=== PATIENT | male | born 1965 | race Caucasian/White ===

== ENCOUNTER 2017-03-24 17:05 | Inpatient (IN) | payer BC ==
[~2017-03-24] VITALS: Ht 165.1 cm; Wt 76.3 kg
--- NOTE | ~2017-03-24 | ECHO ---
Transthoracic Echocardiography Report (TTE) Demographics Patient Name DANIELA WEBSTER Date of Study 03/25/2017 Patient Number [id number] Visit Number [id number] Date of 1965 Room Number G6306 Gender Male Number Age 51 year(s) Referring Bianka De Anda MD Grating Machine Operator Olena Adrian, Physician RT,RVT,RDCS Physician Interpreting Sudha Vargas Motion Picture Operator Physician Supervising Ordering MD/MLP Physician Nurse Stress Watch Repair Person Conclusions Contractility Score Summary Summary The estimated left ventricular ejection fraction is 50%. Septal hypokinesis The left ventricle is mildly dilated . Normal mitral valve structure and function. Trivial mitral regurgitation. Mild tricuspid regurgitation by color Doppler. Normal estimated pulmonary artery pressure. The aortic root appears mildly dilated. The maximum diameter measures 3.9 cm. Procedure Type of Study TTE procedure:2D Echocardiogram, M-Mode, Doppler , Color Doppler. Procedure Date Date: 03/25/2017 Start: 08:43 AM Study Location: Inpatient Portable Technical Quality: Adequate visualization Indications:Elevated cardiac enzymes. Additional Indications:Fever and sinusitis, LBB Appropriate Use Criteria: 9 Patient Status: Routine HR: 91 bpm BP: 106/65 mmHg M-Mode/2D Measurements LV Diastolic Dimension: 5.18 cm LV Systolic Dimension: 4.03 cm LV Septum Diastolic: 0.82 cm LV Septum Systolic: 1.37 cm LV PW Diastolic: 1.09 cm LV PW Systolic: 1.37 cm Cardiac Output: 7.69 l/min AO Root Dimension: 3.9 cm RV Diastolic Dimension: 3.15 cm LA Dimension: 3.8 cm EF Estimated: 50 % MV EPSS: 0.8 cm LVOT: 2 cm LVOT VTI: 26.9 cm LV Stroke volume: 84.47 ml Doppler Measurements AV Peak Velocity: 1.57 m/s MV Peak E-Wave: 1.09 m/s AV Peak Gradient: 9.86 mmHg MV Peak A-Wave: 0.94 m/s AV Mean Gradient: 5 mmHg MV E/A Ratio: 1.16 LVOT Peak Velocity: 1.47 m/s MV P1/2t: 52 msec TR Gradient:23.81 mmHg PV Peak Velocity: 1.36 m/s Estimated RAP:10 mmHg PV Peak Gradient: 7.4 mmHg Estimated RVSP: 34 mmHg Estimated PASP: 33.81 mmHg E' Septal Velocity: 0.08 m/s A' Septal Velocity: 0.13 m/s MV E/E' Ratio: 13.3 Findings Left Ventricle Septal hypokinesis The left ventricle is mildly dilated . Right Ventricle Normal right ventricle structure and function. Left Atrium Normal left atrial size. Right Atrium Normal right atrial size. Mitral Valve Normal mitral valve structure and function. Trivial mitral regurgitation. Aortic Valve Normal aortic valve structure and function. There is trivial aortic regurgitation. Tricuspid Valve Mild tricuspid regurgitation by color Doppler. Normal estimated pulmonary artery pressure. Pulmonic Valve Normal pulmonic valve structure and function. Pericardial Effusion No evidence of pericardial effusion. Miscellaneous The aortic root appears mildly dilated. The maximum diameter measures 3.9 cm. Pleural Effusion No evidence of pleural effusion. Signature dtt: Becky Haley dtd: 03/25/17 0843 Physician Self Edit
--- NOTE | ~2017-03-24 | HP ---
PATIENT'S NAME: DANIELA WEBSTER [facility] [place] AGE: 51 Y [address] ROOM: G6306 [place] [id number] LOCATION: GPCU ADMIT DATE: 03/24/2017 History & Physical DISCHARGE DATE: FAMILY PHYSICIAN: Martin Sheffield MD ATTENDING PHYSICIAN: Barney Carlton DATE OF SERVICE: CHIEF COMPLAINT: Febrile illness with acute kidney injury. HISTORY OF PRESENTING ILLNESS: This 51-year-old white male came to the emergency department this evening complaining of nausea and diarrhea of about 12 hours' duration. He states that he has had significant sinus pressure and headache pain for the last couple of days. He blames this on "migraine," but he does admit that he has had problems with allergies and sinus pressure as well. He took an Excedrin yesterday, which helped. Today, he has been unable to keep anything down. He admits to fever but he has not actually taken his temperature at home. He denies chest pain. He has occasional cough which is nonproductive. No significant abdominal pain. He does feel a little "short of breath." Stools have been loose and watery over the course of the day. He denies noticing any blood in his stools or black tarry stools. He has been voiding without any problems. No numbness or tingling in his extremities or any associated physical or constitutional complaints. PAST MEDICAL HISTORY: ALLERGIES: PENICILLIN, NUTS. ILLNESSES: 1. Migraine headaches. 2. Seasonal allergic rhinitis. 3. Hypogonadism. CURRENT MEDICATIONS: 1. Testosterone gel applied daily. 2. Vitamin E daily. 3. Fish oil daily. 4. Lycopene daily. 5. Apple cider vinegar b.i.d. 6. Benadryl 25 mg p.o. daily. 7. Multivitamin daily. PATIENT'S NAME: BALLSTON SPA DANIELA Chano [facility] [place] AGE: 51 Y [address] ROOM: G6306 [place], [place] [address] LOCATION: GPCU ADMIT DATE: 03/24/2017 History & Physical DISCHARGE DATE: FAMILY PHYSICIAN: Martin Sheffield MD ATTENDING PHYSICIAN: Barney Carlton 8. Cheryl-D p.r.n. FAMILY HISTORY: Significant for heart disease in his mother. SOCIAL HISTORY: There is no significant history of tobacco use. Only rare alcohol use. REVIEW OF SYSTEMS: As per HPI. All other organ systems reviewed and are negative. OBJECTIVE: VITAL SIGNS: Temperature 101, pulse 60, respirations 20, blood pressure 145/79, O2 saturation 96% on room air. GENERAL: He is anxious, mildly ill appearing, lying in bed, in mild distress secondary to headache pain. SKIN: Supple, pink, warm, dry. No obvious rashes. HEENT: Otherwise, normocephalic. Sclerae nonicteric. Pupils equal and round, slow to react to light. Extraocular movements appear intact. Nasal turbinates are engorged. Mucous crusted. Oropharynx is mildly erythematous with some thick postnasal drainage. NECK: Supple. No masses. No adenopathy. No thyromegaly. No JVD. CHEST: Chest wall is symmetrical. HEART: Regular without murmurs. LUNGS: Clear bilaterally. No wheezes or crackles are heard. ABDOMEN: Soft, diffusely tender, but without guarding or rebound. No masses or hepatosplenomegaly. : Not done. RECTAL: Not done. EXTREMITIES: Display no clubbing, cyanosis, or edema. NEUROLOGIC: He demonstrates photosensitivity/photophobia, but no focal deficits. LABORATORY AND X-RAY DATA: CT scan of the brain is unremarkable. CBC showed a white blood cell count 11.0, hemoglobin is 17.1, hematocrit 49.9, platelets 257. Chemistries reveal BUN and creatinine of 18 and 1.5 respectively, sodium and potassium 138 and 3.8, chloride and CO2 are 104 and 26, calcium is 8.9. AST and ALT of 34 and 43, bilirubin is 0.8, magnesium was low at 1.6. Glucose 115. Cardiac enzymes revealed troponin I minimally abnormal at 0.044, CPK of 215, CK-MB 0.9. BNP was normal. C-reactive protein was elevated at 4.16. TSH was 0.982. Blood gases revealed pH of 7.58, pCO2 of 32, pO2 of 31 (this was a venous blood gas). ASSESSMENT AND PLAN: PATIENT'S NAME: DANIELA WEBSTER [facility] [place] AGE: 51 Y [address] ROOM: [place] [address] [facility] ADMIT DATE: 03/24/2017 History & Physical DISCHARGE DATE: FAMILY PHYSICIAN: Martin Sheffield MD ATTENDING PHYSICIAN: Barney Carlton 1. Febrile illness. I suspect a viral syndrome. Acute sinusitis in the ethmoids and left maxillary sinuses could also be a contributing factor. I do not believe that he is septic. We will admit for inpatient care and provide some supportive cares and symptomatic measures. I did elect to go ahead and start IV levofloxacin. We will plan to follow up on blood culture results when they are known. We will surveil for other possible sources of infection. 2. Acute kidney injury. Appears to be prerenal. We will continue with careful IV fluid hydration therapy and monitor. 3. Acute gastroenteritis, suspect a viral illness as above. We will provide supportive cares and symptomatic measures and monitor. 4. Elevated cardiac enzymes in the setting of known left bundle-branch block. We will follow cardiac enzyme trend. He is, otherwise, asymptomatic. We will plan to get an echocardiogram in the morning and consider Cardiology consultation accordingly. 5. Migraine headache. I suspect this is just sinus headache. We will manage symptomatically as above. Expect gradual improvement with treatment of sinusitis. He might benefit from outpatient ENT evaluation eventually. We will start Flonase nasal spray and some Mucinex. 6. Essential hypertension. We will monitor the trend and consider antihypertensive therapy if necessary. 7. Deep venous thrombosis prophylaxis. We will use low-dose Lovenox while he is inpatient. BARNEY CARLTON MD AJS/modl /[id number] D: [id number] T: [id number] HISTORY & PHYSICAL
--- NOTE | ~2017-03-24 | DS ---
PATIENT'S NAME: DANIELA WEBSTER [facility] AGE: 51 Y [address] ROOM: G6306 [place], [place] [address] LOCATION: GPCU ADMIT DATE: 03/24/2017 Discharge Summary DISCHARGE DATE: 03/26/2017 FAMILY PHYSICIAN: Martin Sheffield MD ATTENDING PHYSICIAN: Víctor Carlton PRINCIPAL DIAGNOSES: 1. Acute kidney injury. 2. Acute gastroenteritis. 3. Left bundle-branch block, old. 4. Nausea, vomiting, and diarrhea. BRIEF HOSPITAL COURSE: This is a 51-year-old male, who presents with 1-day history of nausea, vomiting, and diarrhea following a fruit salad that he had. The patient on presentation was noted to be significantly dehydrated with an acute kidney injury with creatinine of 1.6. The patient was admitted and managed with supportive care and with hydration. The patient also had signs of sepsis with elevated white count and high fever and was started on broad- spectrum antibiotics. The patient today is doing very well. Nausea, vomiting, and diarrhea have subsided. Kidney function is back to normal as well, and white blood cell count has normalized as well. The patient also had a mild elevation of troponin. This might be related to his kidney injury. The patient does have a history of an old left bundle-branch block and has had an extensive workup. The patient has had an echo during his hospital stay and it showed ejection fraction of 50% with some old septal hypokinesis. I have advised the patient to follow up with an outpatient dietary aide and he is to bring this up with his primary care. The patient will follow up with his primary care physician within 1 week and have his renal function rechecked again. PHYSICAL EXAMINATION: VITAL SIGNS: The patient is afebrile. Vital signs stable. GENERAL: He is awake, alert, and oriented x3. No acute distress. CHEST: Clear to auscultation bilaterally. HEART: S1 and S2. Regular rate and rhythm. ABDOMEN: Soft, nontender, and nondistended. Positive bowel sounds. EXTREMITIES: Without edema. NEUROLOGIC: Grossly nonfocal. DISPOSITION: Home. FOLLOWUP: With his primary care physician in one week. Less than 30 minutes were spent on discharge planning and facilitating. PATIENT'S NAME: DANIELA WEBSTER [facility] AGE: 51 Y [address] ROOM: G6306 [place] [id number] LOCATION: GPCU ADMIT DATE: 03/24/2017 Discharge Summary DISCHARGE DATE: 03/26/2017 FAMILY PHYSICIAN: Martin Sheffield MD ATTENDING PHYSICIAN: Víctor Carlton LENAOT MD GERTRUDE ANTHONY/modl /[id number] d: 03/27/17 0420 t: 04/05/17 1510, DISCHARGE SUMMARY
--- NOTE | ~2017-03-24 | ER ---
PATIENT'S NAME: ELEANORDANIELA [facility] AGE: 51 Y [address] ROOM: [place] [address] LOCATION: GPCU ADMIT DATE: 03/24/2017 ER/Outpatient Report DISCHARGE DATE: FAMILY PHYSICIAN: Martin Sheffield MD ATTENDING PHYSICIAN: Víctor Carlton Time of Arrival: Admission date and time documented on the medical record. Time of Evaluation: I saw the patient at 1715 hours. CHIEF COMPLAINT: Shortness of breath, racing heart, nausea, diarrhea, and headache. HISTORY OF PRESENT ILLNESS: This patient is a 51-year-old male, who became ill this morning after rising from sleep. Yesterday, he had no complaints, slept well. Woke up with some shortness of breath, racing heart, no fever. He developed shaking chills and rigors. He had some nausea throughout the day. He has had persistent diarrhea all day long. No blood in his diarrhea. No vomiting. He has a generalized headache. No cough, no chest pain. No abdominal pain. Little lightheaded and dizzy, but no syncope or near syncope. No fall or trauma. No eyes, ears, nose, throat, neck, or spine pain. No skin eruptions or rash. No joint or muscle swelling, redness, or pain. No history of endocrine problems, neuro changes, or psych issues. HOME MEDICATIONS: None. ALLERGIES: PENICILLIN. SOCIAL HISTORY: Nonsmoker. Occasional intake of alcohol. SIGNIFICANT PAST MEDICAL HISTORY: Headaches, seasonal allergies, and low testosterone. OPERATIONS: Colonoscopy that was negative 2 years ago. REVIEW OF SYSTEMS: All systems reviewed by me are negative with the exception of those discussed in the history of present illness. PHYSICAL EXAMINATION: VITAL SIGNS: Temperature 101, tympanic; pulse 100, regular; respirations 20; PATIENT'S NAME: [facility] AGE: 51 Y [address] ROOM: [place] [address] LOCATION: GPCU ADMIT DATE: 03/24/2017 ER/Outpatient Report DISCHARGE DATE: FAMILY PHYSICIAN: Martin Sheffield MD ATTENDING PHYSICIAN: Víctor Carlton blood pressure 145/79; and O2 saturation on room air is 96%. HEAD: Normocephalic. No abrasion, contusions, lacerations, or swelling of the scalp or face. EYES: Extraocular muscles intact. PERRL. Sclerae and conjunctivae clear, nonicteric. EARS: Clear TMs bilaterally. NOSE: Clear. THROAT: Clear. Mucous membranes moist. Teeth, jaw intact. NECK: No nuchal rigidity. No thyromegaly or cervical adenopathy. No tenderness. SPINE: Negative. LUNGS: Clear. Good air flow. No rales, rhonchi, or wheezes. HEART: Regular, tachy. Pulses palpable. No chest wall or ribcage pain to palpation, no deformity. ABDOMEN: Soft, nondistended, nontender. Hyperactive bowel tones. No organomegaly or abnormal mass palpable. No CVA tenderness. EXTREMITIES: No peripheral edema, cyanosis, or deformity. NEURO: Cranial nerves intact. No lateralizing sign. The patient is awake, alert, cooperative. Motor and sensory intact. SKIN: Clear. No skin eruptions or rash. LABORATORY DATA AND X-RAYS: EKG showed left bundle-branch block x2, 2 hours apart. Chest x-ray showed no acute infiltrate or changes. Laboratory: CPK and CK-MB were normal x2, 2 hours apart. Initial CPK was 0.044, 2 hours CPK was elevated at 0.053. CRP was elevated at 4.16. Thyroid was normal. ProBNP was normal, less than 30. Venous pH was 7.58. Lactate was 2.1. Procalcitonin was 0.24. D-dimer 0.51. White count was 11,000, 81 segs, 8 lymphs, 10 monos, 1 eo; hemoglobin was 17.1 with hematocrit 49.9; platelet count was 257,000. Sed rate was 5. PTT was 24. Protime is 10.3 with an INR of 0.98. CMS was normal except for an elevated glucose 115, elevated creatinine 1.5, low GFR 50, magnesium was 1.6. Blood cultures x2 drawn, results pending. Did do a CT scan of the head that showed no intracranial bleed, midline shift, mass effect, or skull fracture. The patient did have ethmoid and left maxillary sinusitis. CT scan was read by Radiology, see dictated and transcribed report. EMERGENCY DEPARTMENT COURSE: Did start the patient on IV normal saline, fluids. Gave him 2 L and then 150 mL an hour. Gave him 4 baby aspirin orally in the emergency department. Did give him Benadryl 50 mg IV followed in 10 minutes with Compazine 10 mg and Nubain 5 mg for his headache. His headache markedly improved. IMPRESSION: 1. Febrile illness with tachycardia, tachypnea, fever. Elevated lactate at 2.1. Elevated Procalcitonin at 0.24. Etiology for his fever is PATIENT'S NAME: DANIELA WEBSTER [facility] AGE: 51 Y [address] ROOM: G6306 [place], [place] [address] [facility] AD[facility] DATE: 03/24/2017 ER/Outpatient Report DISCHARGE DATE: FAMILY PHYSICIAN: Martin Sheffield MD ATTENDING PHYSICIAN: Víctor Carlton undetermined at this time, but most likely sinusitis. Two blood cultures were drawn, results pending. 2. Elevated troponin, cardiac enzyme. Need to rule out myocardial etiology. The patient does have a strong family history of heart disease in the 40 to 50 age range. He himself has had no past history of coronary artery disease or heart problems. He has no other risk factors. Will need to have serial EKG, enzymes and possible echocardiogram. 3. Headache, most likely secondary to his infection and fever. 4. Left bundle-branch block. The patient has had this on prior workups. 5. Renal insufficiency with a creatinine of 1.5, low GFR of 50. PLAN: I did discuss this patient with Dr. Carlton, hospitalist. We will admit the patient to PCU telemetry for further evaluation and treatment. Also discussed the patient with Dr. Haley, shearing machine operator, who will follow with the patient with his elevated troponin. Discussion ensued with the patient concerning my findings and recommendations, he understands. KOURTNEY HUNT MD SDS/modl /[id number] d: 03/25/17 0350 t: 03/25/17 1809, OUTPATIENT REPORT
[2017-03-24 17:48] LABS: LACTATE 2.1 mEq/L (0.50-1.60); PCO2 32 mmHg (35-45)
[2017-03-24 17:49] LABS: BASOPHIL % 0.3 %; EOSINOPHIL # 0.1 K/uL (0.0-0.5); EOSINOPHIL % 0.5 %; HEMATOCRIT 49.9 % (37.0-53.0); HEMOGLOBIN 17.1 g/dL (12.0-17.0); IMMATURE GRANULOCYTE % 0.3 %; LYMPHOCYTE # 0.9 K/uL (0.8-4.0); LYMPHOCYTE % 8.3 %; MCH 30.1 pg (27.0-34.0); MCHC 34.3 gm/dL (32.0-36.5); MCV 87.7 fl (83.0-98.0); MONOCYTE # 1.1 K/uL (0.0-1.0); MONOCYTE % 10.1 %; MPV 9.7 fl (9.4-12.4); NEUTROPHIL # (ANC) 8.9 K/uL (1.4-9.0); NEUTROPHIL % 80.5 %; NRBC % 0 /100WBC (0-0.00); PLATELET COUNT 257 K/uL (150-450); PO2 31 mmHg (80-90); RBC 5.69 M/uL (4.00-6.00); RDW-CV 13.2 % (11.9-14.6)
[2017-03-24 17:59] LABS: INR - (THERAPEUTIC) 0.98 (0.92-1.07); PROTIME 10.3 SECONDS (9.8-11.4); PTT 24 SECONDS (25-32)
[2017-03-24 18:13] LABS: ALBUMIN 3.8 gm/dL (3.5-5.0); ALK PHOS 77 IU/L (33-138); ALT 43 IU/L (12-78); BLOOD UREA NITROGEN 18 mg/dL (6-24); CALCIUM 8.9 mg/dL (8.5-10.5); CHLORIDE 104 mMol/L (96-110); CO2 26 mMol/L (22-32); CPK 215 IU/L (35-332); CREATININE 1.5 mg/dL (0.6-1.3); ESTIMATED GFR (MDRD EQUATION) 50; SODIUM 138 mMol/L (135-145); TOTAL BILIRUBIN 0.8 mg/dL (0.0-1.5); TOTAL PROTEIN 7.2 g/dL (6.0-8.4)
[2017-03-24 18:23] LABS: ANION GAP 11.8 (10.0-19.0); AST 34 IU/L (10-40); MAGNESIUM 1.6 mg/dL (1.8-2.6); POTASSIUM 3.8 mMol/L (3.7-5.1)
[2017-03-24] MEDS ORDERED: BENADRYL25 MG PO (23:05)
[2017-03-24] MEDS ORDERED: ANDROGEL 1% TOP (23:05)
[2017-03-24] MEDS ORDERED: TYLENOL EXTRA500 MG PO (23:06)
--- NOTE | 2017-03-24 23:12 | NUR ---
PATIENT ARRIVED TO FLOOR VIA WHEELCHAIR FROM ER AT 2150. IV INTACT AND VSS. PATIENT WENT TO ER TODAY BECAUSE HE HAS BE HAVING DIAHERRA SINCE THIS MORNING ALONG WITH NAUSEA, INCREASED SOB, WORESING CHRONIC HEADACHE UP TO A 7/10 PAIN, AND INCREASED CHEST PRESSURE FEELING THOUGH HEART WAS RACING. EKG PERFORMED AND SHOW A LEFT BUNDLE BRANCH BLOCK WITH HR AT 100. CT OF HEAD DONE DUE TO CHRONIC HEADAHCE AND THAT WAS NEGATIVE EXCEPT FOR PROBABLE SINISITIS. 4 BABY ASA GIVEN AND LABS DRAWN. MOSTLY SIGNIFICANTLY LABS SHOWED ELEVATED TN-I, CR, AND PROCAL. ER PHYSICIAN CONSULTED DR Madden. PATIENT HAS NO SIGNIFICANT PAST MEDICAL HISTORY. PHYISICAN NOTIFIED OF PATIENT ARRIVAL TO FLOOR AND FAMILY AWARE OF ADMISSION.
--- NOTE | 2017-03-25 04:27 | NUR ---
Significant Event: PATIENT IS A/O X3. VSS. HR 80-100'S. SBP 100-130'S. LOW GRADE FEVER OF 100.1. TYLENOL GIVEN. 02 SATS IN MID 90'S ON RA. C/O CHRONIC HEADACHE. IV NUBAIN GIVEN X1 WITH SOME RELIEF. C/O CONGESTION AND SOB WITH ACTIVITY. LUNGS CLEAR/DIM. UP WITH SBA TO RESTROOM. BOWELS ACTIVE. 2 LOOSE STOOLS. VOIDS PER URINAL. IV TO LEFT FOREARM WITH NS AT 75 ML/HR. Follow up: CARDIOLOGY CONSULTED AND AWARE. CONTINUE TO MONITOR.
[2017-03-25 07:18] LABS: BASOPHIL % 0.2 %; HEMATOCRIT 49.7 % (37.0-53.0); HEMOGLOBIN 16.6 g/dL (12.0-17.0); IMMATURE GRANULOCYTE # 0.1 K/uL (0.0-0.3); IMMATURE GRANULOCYTE % 0.4 %; LYMPHOCYTE # 0.7 K/uL (0.8-4.0); LYMPHOCYTE % 4.1 %; MCHC 33.4 gm/dL (32.0-36.5); MCV 89.9 fl (83.0-98.0); MONOCYTE # 1.3 K/uL (0.0-1.0); MONOCYTE % 7.9 %; MPV 9.4 fl (9.4-12.4); NEUTROPHIL # (ANC) 14.6 K/uL (1.4-9.0); NEUTROPHIL % 87.4 %; NRBC % 0 /100WBC (0-0.00); PLATELET COUNT 229 K/uL (150-450); RBC 5.53 M/uL (4.00-6.00); RDW-CV 13.4 % (11.9-14.6)
[2017-03-25 07:19] LABS: WBC 16.7 K/uL (4.0-11.0)
[2017-03-25 07:37] LABS: ALBUMIN 3.3 gm/dL (3.5-5.0); ANION GAP 9.4 (10.0-19.0); CREATININE 1.6 mg/dL (0.6-1.3); PHOSPHORUS 3.4 mg/dL (2.5-4.9); POTASSIUM 4.4 mMol/L (3.7-5.1)
--- NOTE | 2017-03-25 12:52 | NUR ---
Introduced self and role of care management to pt and . He lives here in [place] and denies any post discharge needs at this time. He thinks he has just been overworking and now not feeling well at all.
--- NOTE | 2017-03-25 19:13 | NUR ---
PATIENT UP TO BR W/ STAND BY ASSIST. C/O HEADACHE PAIN, ULTRAM GIVEN WITH PARTIAL RELIEF. SEVERE HEADACHE AT END OF SHIFT, NUBAIN GIVEN WITH PARTIAL RELIEF. ES TYLENOL GIVEN X1, MAX TEMP 99.4.
--- NOTE | 2017-03-26 04:26 | NUR ---
Significant Event: PATIENT IS A/O X3. VSS. HR 60-80'S. SBP 100-120'S. AFEBRILE. 02 SATS IN MID 90'S ON RA. C/O HEADACHE. NUBAIN/TYLENOL GIVEN AT SHIFT CHANGE WITH RELIEF. LUNGS CLEAR/DIM THROUGHOUT. UP AD KELSEA IN ROOM. BOWELS ACTIVE. LOOSE STOOL X1. VOIDS PER RESTROOM. LEFT FOREARM IV SL. Follow up: CONTINUE TO MONITOR. POSSIBLY HOME TODAY.
[2017-03-26 04:27] LABS: BASOPHIL % 0.4 %; EOSINOPHIL # 0.1 K/uL (0.0-0.5); EOSINOPHIL % 1.6 %; HEMATOCRIT 44.6 % (37.0-53.0); HEMOGLOBIN 15.3 g/dL (12.0-17.0); IMMATURE GRANULOCYTE % 0.4 %; LYMPHOCYTE # 1.1 K/uL (0.8-4.0); LYMPHOCYTE % 12.4 %; MCH 30.8 pg (27.0-34.0); MCHC 34.3 gm/dL (32.0-36.5); MCV 89.9 fl (83.0-98.0); MONOCYTE # 1.1 K/uL (0.0-1.0); MPV 9.6 fl (9.4-12.4); NEUTROPHIL # (ANC) 6.2 K/uL (1.4-9.0); NEUTROPHIL % 72.2 %; NRBC % 0 /100WBC (0-0.00); PLATELET COUNT 202 K/uL (150-450); RBC 4.96 M/uL (4.00-6.00); RDW-CV 13.6 % (11.9-14.6); WBC 8.5 K/uL (4.0-11.0)
[2017-03-26 04:47] LABS: ALBUMIN 2.8 gm/dL (3.5-5.0); ANION GAP 8.9 (10.0-19.0); BLOOD UREA NITROGEN 11 mg/dL (6-24); CALCIUM 7.6 mg/dL (8.5-10.5); CHLORIDE 108 mMol/L (96-110); CO2 26 mMol/L (22-32); CREATININE 1.2 mg/dL (0.6-1.3); ESTIMATED GFR (MDRD EQUATION) > 60; MAGNESIUM 2.1 mg/dL (1.8-2.6); PHOSPHORUS 1.8 mg/dL (2.5-4.9); POTASSIUM 3.9 mMol/L (3.7-5.1); SODIUM 139 mMol/L (135-145)
[2017-03-26] MEDS ORDERED: FLONASE 50 MCG/16 GM NOSE (11:29)
[2017-03-26] MEDS ORDERED: ZOFRAN4 MG PO (11:31)
--- NOTE | 2017-03-26 12:01 | NUR ---
Significant Event: PT A&O x3. VSS, on room air. Pain well controlled with ultram x1, tylenol x1. Zofran given for nausea, relief noted. PT up ad aries in room and arceo. IV dc'd. Dismissal instructions/prescriptions given to PT/spouse, voiced understanding. PT wheeled to front lobby and dismissed to home by nurse. Follow up:
== END 2017-03-26 11:55 | disposition disaster alternative care site (69) | DRG 872 ==
LOC: GMED 17:05 → GPCU 21:30
PROVIDERS: Emergency Medicine; Internal Medicine; ADMIT Family Medicine
DX: A41.9 Sepsis, unspecified organism (principal); N17.9 Acute kidney failure, unspecified; K52.9 Noninfective gastroenteritis and colitis, unspecified; I44.7 Left bundle-branch block, unspecified; I10 Essential (primary) hypertension
CPT/HCPCS: J0780; J1200; J1650; J1956; J2300; J2405; J3475; J7030